=== PATIENT | female | born 1975 | race Caucasian/White ===

== ENCOUNTER 2018-04-08 09:12 | Emergency (ER) | payer MEDICAID ==
[2018-04-08] MEDS: IBUPROFEN 800 MG TAB PO (09:58)
== END 2018-04-08 10:03 | disposition home or self-care (01) ==
LOC: FTE 09:12
DX: H66.91 Otitis media, unspecified, right ear (principal); H60.91 Unspecified otitis externa, right ear; J32.9 Chronic sinusitis, unspecified
CPT/HCPCS: 99283; Z7502

== ENCOUNTER 2019-02-22 16:23 | Emergency (ER) | payer MEDICAID | END 2019-02-22 17:16 | disposition home or self-care (01) | LOC: FTE 16:23 | DX: S91.202A Unspecified open wound of left great toe with damage to nail, initial encounter (principal); E11.9 Type 2 diabetes mellitus without complications; W22.8XXA Striking against or struck by other objects, initial encounter; Y92.9 Unspecified place or not applicable | CPT/HCPCS: 99282; Z7502 ==

== ENCOUNTER 2019-04-13 05:44 | Emergency (ER) | payer MEDICAID ==
[2019-04-13] MEDS: LIDOCAINE 2% (MDV) 20 ML INJ INJ (08:02)
== END 2019-04-13 09:47 | disposition home or self-care (01) ==
LOC: FTE 05:44
DX: L02.412 Cutaneous abscess of left axilla (principal); E11.9 Type 2 diabetes mellitus without complications
CPT/HCPCS: 10060; 76536; 99284-25

== ENCOUNTER 2019-04-15 16:42 | Emergency (ER) | payer MEDICAID | END 2019-04-15 17:27 | disposition home or self-care (01) | LOC: FTE 17:27 | DX: Z48.01 Encounter for change or removal of surgical wound dressing (principal) | CPT/HCPCS: 99281; Z7502 ==